=== PATIENT | male | born 1975 | race Caucasian/White ===

== ENCOUNTER 2022-07-13 12:23 | Emergency (ER) | payer SELFPAY ==
[~2022-07-13] VITALS: Ht 182.9 cm; Wt 86.2 kg
[~2022-07-13 12:23] MED LIST: CLIN300 PO; HYDACE7.5L PO
[2022-07-13 12:54] VITALS: BP 158/92
[2022-07-13] MEDS ORDERED: DOXY100 PO (13:07)
[2022-07-16 05:12] LABS: CHLAMYDIA TRACHOMATIS, NAA Negative (Negative)
== END 2022-07-13 14:08 | disposition home or self-care (01) ==
LOC: ER 12:23
PROVIDERS: Student in an Organized Health Care Education/Training Program
DX: Z20.2 Contact with and (suspected) exposure to infections with a predominantly sexual mode of transmission (principal); Z79.899 Other long term (current) drug therapy; F17.200 Nicotine dependence, unspecified, uncomplicated
CPT/HCPCS: 87491; 87591; 96372; 99283-25; J0696

== ENCOUNTER 2023-10-21 07:52 | Emergency (ER) | payer SELFPAY ==
[~2023-10-21] VITALS: Ht 180.3 cm; Wt 86.2 kg
[~2023-10-21 07:52] MED LIST changes: +DOXY100 PO
[2023-10-21 08:13] VITALS: BP 144/99
[2023-10-21] MEDS ORDERED: AMOX500 PO (08:14)
== END 2023-10-21 08:16 | disposition home or self-care (01) ==
LOC: ER 07:52
DX: K04.7 Periapical abscess without sinus (principal)
CPT/HCPCS: 99282

== ENCOUNTER 2025-02-13 14:39 | Emergency (ER) | payer SELFPAY ==
[~2025-02-13] VITALS: Ht 182.9 cm; Wt 81.7 kg
[~2025-02-13 14:39] MED LIST changes: +AMOX500 PO
[2025-02-13 14:44] VITALS: BP 160/106
== END 2025-02-13 15:35 | disposition home or self-care (01) ==
LOC: ER 14:39
DX: S01.01XA Laceration without foreign body of scalp, initial encounter (principal); Y00.XXXA Assault by blunt object, initial encounter; Z23 Encounter for immunization; Z79.899 Other long term (current) drug therapy; F17.200 Nicotine dependence, unspecified, uncomplicated
CPT/HCPCS: 12002; 90471; 90715; 99283-25